=== PATIENT | female | born 1940 | race Caucasian/White ===

== ENCOUNTER → 2017-10-30 11:56 | Outpatient (CLI) | payer MEDICARE, SELFPAY ==
--- NOTE | 2017-10-30 | DI.RAD.S_ITS ---
PROCEDURE: XR KNEE RT 3V INDICATIONS: RIGHT KNEE PAIN TECHNIQUE: 3 views of the knee were acquired. COMPARISON: None. FINDINGS: Bones: No fractures or dislocations. There is a large heterogeneously sclerotic lesion in the central femoral metaphysis measuring 3.1 x 3.1 x 2.3 cm in size. No pathologic fracture. Mild joint space narrowing and marginal spurring over the posterior patella and weightbearing joints. Mild lateral subluxation of the patella. Soft tissues: No joint effusion. No suspicious soft tissue calcifications. IMPRESSION: 1. No joint effusion or acute bony abnormality. 2. 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 3. Large sclerotic lesion in the distal femoral metaphysis, likely enchondroma. Recommend orthopedic consultation. Dictated by: Deniz Garcia M.D. on 10/30/2017 at 13:36 Approved by: Deniz Garcia M.D. on 10/30/2017 at 13:40
--- NOTE | 2017-10-30 | DI.RAD.S_ITS ---
PROCEDURE: XR HAND RT MIN 3V INDICATIONS: RIGHT HAND PAIN TECHNIQUE: 3 views of the hand(s) acquired. COMPARISON: None. FINDINGS: Bones: Generalized osteopenia. No fractures or dislocations. Carpal bones are normally aligned. The severe arthritis with ulnar deviation involves the DIP joints of the index and middle fingers, less severe arthritis is present in the thumb joints, PIP joints of the fourth and fifth fingers and all carpal metacarpal joints. No fractures. No suspicious bone lesions. Soft tissues: No suspicious soft tissue calcifications. 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 on 10/30/2017 at 14:27 Approved by: Deniz Garcia M.D. on 10/30/2017 at 14:29
--- NOTE | 2017-10-30 12:17 | DI.MG.S_ITS ---
Patient Name: TERRA FERNANDEZ date: 1940 Sex: F Attending Physician: Cam Indications: Date: 10/30/2017 12:17 At the request of: PATRICIA SEVILLA Procedure: MM screening mammo BI BILATERAL DIGITAL SCREENING MAMMOGRAM 3D/2D WITH CAD: 10/30/2017 CLINICAL: Routine screening. Family history of breast cancer. Comparison is made to exams dated: 10/28/2016 mammogram, 06/02/2015 mammogram, and 05/29/2014 mammogram - [facility]. The tissue of both breasts is heterogeneously dense. This may lower the sensitivity of mammography. Current study was also evaluated with a Computer Aided Detection (CAD) system. There are benign calcifications bilaterally. There are multiple benign circumscribed masses bilaterally. No significant masses, calcifications, or other findings are seen in either breast. IMPRESSION: BENIGN There is no mammographic evidence of malignancy. A 1 year screening mammogram is recommended. This exam was interpreted at Station ID: [id number]. NOTE: For mammograms, a report in lay terms will be sent to the patient. Approximately 15% of breast malignancies will not be visualized mammographically. In the management of a palpable breast mass, a negative mammogram must not discourage biopsy of a clinically suspicious lesion. Electronically Signed By: Jonh Angulo M.D. ecl/:10/30/2017 19:52:02 letter sent: Normal Exam ACR BI-RADS Category 2: Benign Finding(s) 3342F
== END ==
PROVIDERS: Family Provider Family Medicine; PCP Family Medicine; Visit Provider Family Medicine
DX: Z12.31 Encounter for screening mammogram for malignant neoplasm of breast (principal); Z80.3 Family history of malignant neoplasm of breast; M85.851 Other specified disorders of bone density and structure, right thigh; Z78.0 Asymptomatic menopausal state; M17.11 Unilateral primary osteoarthritis, right knee; M25.861 Other specified joint disorders, right knee; M19.041 Primary osteoarthritis, right hand; M25.561 Pain in right knee; M79.641 Pain in right hand
CPT/HCPCS: 73120; 73130; 73562; 77063; 77067; 77080

== ENCOUNTER → 2018-10-31 14:55 | Outpatient (CLI) | payer MEDICARE, SELFPAY ==
--- NOTE | 2018-10-31 | DI.MG.S_ITS ---
BILATERAL DIGITAL SCREENING MAMMOGRAM 3D/2D WITH CAD: 10/31/2018 CLINICAL: Routine screening. Family history of breast cancer. Comparison is made to exams dated: 10/30/2017 mammogram, 10/28/2016 mammogram, and 06/02/2015 mammogram - [facility]. The tissue of both breasts is heterogeneously dense. This may lower the sensitivity of mammography. Current study was also evaluated with a Computer Aided Detection (CAD) system. There are benign calcifications in both breasts. No significant masses, calcifications, or other findings are seen in either breast. There has been no significant interval change. IMPRESSION: There is no mammographic evidence of malignancy. A 1 year screening mammogram is recommended. This exam was interpreted at Station ID: [id number]. NOTE: For mammograms, a report in lay terms will be sent to the patient. Approximately 15% of breast malignancies will not be visualized mammographically. In the management of a palpable breast mass, a negative mammogram must not discourage biopsy of a clinically suspicious lesion. Electronically Signed By: Zack baez/asia:10/31/2018 16:52:27 letter sent: Normal Exam ACR BI-RADS Category 2: Benign Finding(s) 3342F
== END ==
PROVIDERS: Family Provider Family Medicine; PCP Family Medicine; Visit Provider Family Medicine
DX: Z12.31 Encounter for screening mammogram for malignant neoplasm of breast (principal); Z80.3 Family history of malignant neoplasm of breast
CPT/HCPCS: 77063; 77067

== ENCOUNTER → 2018-12-14 16:00 | Outpatient (CLI) | payer MEDICARE, SELFPAY ==
--- NOTE | 2018-12-14 | DI.ECHO.S_ITS ---
[facility]---------[facility] +---------+ : : [address] [place] : : : : [id number] : : : : Phone: [phone] Echocardiogram Report + + :Name: TERRA CERVANTES Study Date: 12/14/2018 Height: 62 in : :[facility] Exam Location: [facility] Weight: 130 lb : : Gender: Female BSA: 1.6 m2 : :: 1940 Age: 78 yrs BP: 116/65 mmHg: :Reason For Study: MR : : Performed By: Wilfrid Lama : :Referring: PATRICIA SEVILLA : + + Interpretation Summary Normal sinus rhythm. Normal LV size and wall thickness; normal wall motion and LV systolic function. EF is 60-65%. Mild LA enlargement; otherwise normal chamber sizes. Mitral valve leaflets are normal; mild MAC with trace associated MR. Aortic valve leaflets are mildly thickened and calcified; there is mild AI. Compared to prior study 10/28/2016 MR is down from mild-moderate to mild. Procedure: A two-dimensional transthoracic echocardiogram with color flow and Doppler was performed. The study quality was technically adequate. Comparison is made with the echocardiogram of 10/28/16. The patient was in normal sinus rhythm during the exam. Left Ventricle: The left ventricle is normal in size. There is normal left ventricular wall thickness. The ejection fraction is estimated to be 60-65%. There are no focal wall motion abnormalities. Diastolic parameters suggest a relaxation abnormality of the left ventricle, consistent with probable normal filling pressures. Right Ventricle: The right ventricle is normal in size and function. Atria: The left atrium is mildly dilated. Right atrial size is normal. The interatrial septum is intact with no evidence for an atrial septal defect. Mitral Valve: There is mild mitral annular calcification. There is mild mitral regurgitation. Aortic Valve: The aortic valve is trileaflet. The aortic valve is mildly calcified. The aortic valve opens well. There is mild aortic regurgitation. Tricuspid Valve: The tricuspid valve is normal in structure and function. No tricuspid regurgitation. Pulmonary artery pressures cannot be estimated because of the lack of a measurable TR jet velocity. Pulmonic Valve: The pulmonic valve is normal in structure and function. There is trace pulmonic regurgitation. Great Vessels: The aortic root is normal size. The ascending aorta is at the upper limits of normal in size. The pulmonary artery is normal size. The IVC is of normal diameter and collapses greater than 50% with a sniff. This suggests a low right atrial pressure of 3 mm Hg. Pericardium/ Pleura There is no pericardial effusion. There is no pleural effusion. MMode/2D Measurements & Calculations LVIDd: 4.7 cm LVOT diam: 2.0 cm LVIDs: 3.0 cm Ao root diam: 2.7 cm FS: 36.0 % Aortic Jxn: 2.4 cm EPSS: 0.62 cm asc Aorta Diam: 3.5 cm IVSd: 0.92 cm Ao Arch Diam (Prox Trans): 2.7 cm LVPWd: 0.79 cm LV justice. diameter/BSA (cm/m^2): 2.9 LV sys. diameter/BSA (cm/m^2): 1.9 LA dimension: 3.7 cm RA long axis: 4.3 cm LA A2 area: 18.6 cm2 RA area: 12.1 cm2 LA A4 area: 17.9 cm2 RA vol: 28.6 ml LA length (vol): 4.6 cm RA : 18.0 ml/m2 LA vol: 61.3 ml IVC diam: 1.2 cm LA vol index: 38.5 ml/m2 Doppler Measurements & Calculations Ao V2 max: 176.7 cm/sec LVOT Max Brennan: 121.1 cm/sec Ao V2 mean: 120.8 cm/sec LV V1 max P.9 mmHg Ao max P.5 mmHg LV V1 VTI: 24.9 cm Ao mean P.6 mmHg JERRELL(I,D): 2.0 cm2 Ao V2 VTI: 38.4 cm JERRELL(V,D): 2.1 cm2 sev ratio: 0.65 JERRELL indexed to BSA (cm^2/m^2): 1.3 AI P1/2t: 766.2 msec AI dec slope: 149.7 cm/sec2 MV E max brennan: 46.1 cm/sec PA V2 max: 75.7 cm/sec MV A max brennan: 100.7 cm/sec PA V2 mean: 52.0 cm/sec MV E/A: 0.46 PA mean P.2 mmHg Med Peak E' Brennan: 2.4 cm/sec PA pr(Accel): 39.1 mmHg E/E' med: 19.4 PA Accel Time: 0.10 sec Lat Peak E' Brennan: 3.9 cm/sec E/E' lat: 11.8 E/e' average: 15.6 MV dec time: 0.27 sec SV(LVOT): 77.1 ml Electronically signed by: Veronika Jenkins M.D. on Reading Physician:12/15/2018 04:29 AM
== END ==
PROVIDERS: PCP Family Medicine; Visit Provider Family Medicine
DX: I08.0 Rheumatic disorders of both mitral and aortic valves (principal)
CPT/HCPCS: 93306

== ENCOUNTER → 2018-12-24 15:05 | Outpatient (CLI) | payer MEDICARE, SELFPAY ==
--- NOTE | 2018-12-24 | DI.RAD.S_ITS ---
PROCEDURE: XR CHEST 2V INDICATIONS: COUGH TECHNIQUE: 2 views of the chest were acquired. COMPARISON: [facility], , CHEST 2 VIEW, 09/09/2014, 14:28. FINDINGS: Surgical changes and devices: None. Lungs and pleura: Lungs are clear. No pleural effusions or pneumothorax. There is mild prominence of pulmonary vasculature. Mediastinum: There is mild tortuosity of the thoracic aorta, which is unchanged from prior exam. Mediastinal contours are otherwise normal. Heart size is normal. Bones and chest wall: No suspicious bony abnormalities. Soft tissues appear unremarkable. There are mild multilevel degenerative changes of the imaged thoracolumbar spine. IMPRESSION: No acute cardiopulmonary disease. Dictated by: Jonh Angulo M.D. on 12/24/2018 at 20:36 Approved by: Jonh Angulo M.D. on 12/24/2018 at 20:40
== END ==
PROVIDERS: PCP Family Medicine; Visit Provider Family Medicine
DX: R05 Cough (principal)
CPT/HCPCS: 71046

== ENCOUNTER → 2019-11-14 14:52 | Outpatient (CLI) | payer MEDICARE, SELFPAY ==
--- NOTE | 2019-11-14 | DI.MG.S_ITS ---
BILATERAL DIGITAL SCREENING MAMMOGRAM 3D/2D WITH CAD: 11/14/2019 CLINICAL: Routine screening. Family history of breast cancer. Comparison is made to exams dated: 10/31/2018 mammogram, 10/30/2017 mammogram, and 10/28/2016 mammogram - [facility]. The tissue of both breasts is heterogeneously dense. This may lower the sensitivity of mammography. Current study was also evaluated with a Computer Aided Detection (CAD) system. There are benign calcifications in both breasts. No significant masses, calcifications, or other findings are seen in either breast. There has been no significant interval change. IMPRESSION: There is no mammographic evidence of malignancy. A 1 year screening mammogram is recommended. This exam was interpreted at Station ID: [id number]. NOTE: For mammograms, a report in lay terms will be sent to the patient. Approximately 15% of breast malignancies will not be visualized mammographically. In the management of a palpable breast mass, a negative mammogram must not discourage biopsy of a clinically suspicious lesion. Electronically Signed By: Tomer [email or web address]/asia:11/14/2019 17:30:22 letter sent: Normal Exam ACR BI-RADS Category 2: Benign Finding(s) 3342F
== END ==
PROVIDERS: PCP Family Medicine; Referring Provider Family Medicine; Visit Provider Family Medicine
DX: Z12.31 Encounter for screening mammogram for malignant neoplasm of breast (principal); M85.851 Other specified disorders of bone density and structure, right thigh; Z78.0 Asymptomatic menopausal state
CPT/HCPCS: 77063; 77067; 77080

== ENCOUNTER → 2020-12-02 15:17 | Outpatient (CLI) | payer MEDICARE, SELFPAY ==
--- NOTE | 2020-12-02 | DI.MG.S_ITS ---
BILATERAL DIGITAL SCREENING MAMMOGRAM 3D/2D WITH CAD: 12/02/2020 CLINICAL: Routine screening. Family history of breast cancer. Comparison is made to exams dated: 11/14/2019 mammogram, 10/31/2018 mammogram, and 10/30/2017 mammogram - [facility]. The tissue of both breasts is heterogeneously dense. This may lower the sensitivity of mammography. Current study was also evaluated with a Computer Aided Detection (CAD) system. There are benign calcifications in both breasts. No significant masses, calcifications, or other findings are seen in either breast. There has been no significant interval change. IMPRESSION: BENIGN There is no mammographic evidence of malignancy. A 1 year screening mammogram is recommended. This exam was interpreted at Station ID: [id number]. NOTE: For mammograms, a report in lay terms will be sent to the patient. Approximately 15% of breast malignancies will not be visualized mammographically. In the management of a palpable breast mass, a negative mammogram must not discourage biopsy of a clinically suspicious lesion. Electronically Signed By: Ivan hart/asia:12/02/2020 16:05:56 letter sent: Normal Exam ACR BI-RADS Category 2: Benign Finding(s) 3342F
== END ==
PROVIDERS: PCP Family Medicine; Referring Provider Family Medicine; Visit Provider Family Medicine
DX: Z12.31 Encounter for screening mammogram for malignant neoplasm of breast (principal); Z80.3 Family history of malignant neoplasm of breast
CPT/HCPCS: 77063; 77067

== ENCOUNTER → 2021-04-20 13:34 | Outpatient (CLI) | payer MEDICARE, SELFPAY ==
--- NOTE | 2021-04-20 | DI.ECHO.S_ITS ---
[facility]---------+ [facility] +---------+ : : [address] : [address] : : : : [id number] : : : : Phone: [phone]+ Echocardiogram Report + + :Name: TERRA CERVANTES Study Date: 04/20/2021 Height: 63 in : :[facility] ReadingLocation: Weight: 118 lb : : Gender: Female BSA: 1.5 m2 : :: 1940 Age: 80 yrs BP: 152/81 mmHg: :Reason For Study: MITRAL INSUFFICIENCY : :Ordering Physician: DI, : :PATRICIA Performed By: Roseanne Funez : :Referring: PATRICIA SEVILLA : + + Interpretation Summary 1) Normal left ventricular thickness, size, wall motion, and systolic function (EF 60-65%). 2) Normal right ventricular size and function. 3) There is mild to moderate aortic regurgitation. 4) Compared to the Echo done 12/14/2018, no significant change when compared visually. Procedure: A two-dimensional transthoracic echocardiogram with color flow and Doppler was performed. The study quality was technically adequate. Comparison is made with the echocardiogram of 12/14/2018. The patient was in sinus rhythm with heart rates between 58-66 bpm during the exam. Left Ventricle: The left ventricle is normal in size and wall thickness. The ejection fraction is estimated to be 60-65%. Left ventricular systolic function appears normal without focal wall motion abnormalities. Right Ventricle: The right ventricle is normal in size and function. Atria: The left atrium is mildly dilated. Right atrial size is normal. There is no Doppler evidence for an interatrial shunt. Mitral Valve: There is mild mitral annular calcification. The mitral valve leaflets appear mildly thickened, but open well. There is mild mitral regurgitation. Aortic Valve: The aortic valve is trileaflet. The aortic valve is mildly calcified. There is no aortic valve stenosis. There is mild to moderate aortic regurgitation. Tricuspid Valve: The tricuspid valve is normal in structure and function. There is trace tricuspid regurgitation. The right ventricular systolic pressure is estimated to be at least 26 mmHg based on an estimated right atrial pressure of 3 mm Hg. Pulmonic Valve: The pulmonic valve leaflets are thin and pliable; valve motion is normal. There is trace pulmonic regurgitation. Great Vessels: The aortic root is normal size. The ascending aorta is normal in size. The IVC is of normal diameter and collapses greater than 50% with a sniff. This suggests a low right atrial pressure of 3 mm Hg. Pericardium/ Pleura There is no pericardial effusion. There is no pleural effusion. MMode/2D Measurements & Calculations LVIDd: 5.0 cm LVOT diam: 2.0 cm LVIDs: 3.4 cm Ao root diam: 2.9 cm FS: 32.9 % asc Aorta Diam: 3.4 cm IVSd: 0.83 cm Ao Arch Diam (Prox Trans): 2.3 cm LVPWd: 0.96 cm LV justice. diameter/BSA (cm/m^2): 3.2 LV sys. diameter/BSA (cm/m^2): 2.2 LA A2 area: 18.1 cm2 RA long axis: 4.5 cm LA A4 area: 15.7 cm2 RA area: 13.5 cm2 LA length (vol): 4.7 cm RA vol: 34.4 ml LA vol: 51.1 ml RA : 22.3 ml/m2 LA vol index: 33.1 ml/m2 IVC diam: 1.1 cm RVD1 (basal): 3.4 cm RVD2 (mid): 2.8 cm TAPSE: 1.8 cm Doppler Measurements & Calculations Ao V2 max: 138.4 cm/sec LVOT Max Brennan: 122.7 cm/sec Ao V2 mean: 85.6 cm/sec LV V1 max P.0 mmHg Ao max P.7 mmHg LV V1 VTI: 27.1 cm Ao mean P.5 mmHg JERRELL(I,D): 3.7 cm2 Ao V2 VTI: 23.8 cm JERRELL(V,D): 2.9 cm2 sev ratio: 1.1 JERRELL indexed to BSA (cm^2/m^2): 2.4 AI P1/2t: 676.0 msec AI dec slope: 151.4 cm/sec2 MV E max brennan: 57.1 cm/sec TR max brennan: 240.3 cm/sec MV A max brennan: 112.6 cm/sec TR max P.1 mmHg MV E/A: 0.51 PA V2 max: 87.4 cm/sec Med Peak E' Brennan: 3.3 cm/sec PA V2 mean: 60.6 cm/sec E/E' med: 17.3 PA mean P.6 mmHg Lat Peak E' Brennan: 4.9 cm/sec PA pr(Accel): 27.6 mmHg E/E' lat: 11.5 E/e' average: 14.4 MV dec time: 0.36 sec SV(LVOT): 88.1 ml Reading Physician:04:27 PM
== END ==
PROVIDERS: PCP Family Medicine; Referring Provider Family Medicine; Visit Provider Family Medicine
DX: I08.0 Rheumatic disorders of both mitral and aortic valves (principal)
CPT/HCPCS: 93306

== ENCOUNTER → 2021-11-29 18:46 | Outpatient (ROUT) | payer MEDICARE, SELFPAY ==
[2021-11-29 19:33] LABS: COVID19 -Nasal RAPID Negative (Negative)
== END ==
PROVIDERS: PCP Family Medicine; Visit Provider Family Medicine
DX: Z20.822 Contact with and (suspected) exposure to COVID-19 (principal); R05.1 Acute cough
CPT/HCPCS: 87635

== ENCOUNTER → 2021-12-23 15:06 | Outpatient (CLI) | payer MEDICARE, SELFPAY ==
--- NOTE | 2021-12-23 15:08 | DI.MG.S_ITS ---
BILATERAL DIGITAL SCREENING MAMMOGRAM 3D/2D WITH CAD: 12/23/2021 CLINICAL: Routine screening. Family history of breast cancer. Comparison is made to exams dated: 12/02/2020 mammogram, 11/14/2019 mammogram, 10/31/2018 mammogram, 10/30/2017 mammogram, and 10/28/2016 mammogram - [facility]. Both breasts are heterogeneously dense, which may obscure small masses (category c / 51-75% glandular tissue). Current study was also evaluated with a Computer Aided Detection (CAD) system. No significant masses, calcifications, or other findings are seen in either breast. There has been no significant interval change. IMPRESSION: NEGATIVE There is no mammographic evidence of malignancy. A 1 year screening mammogram is recommended. Based on the Tyrer Cuzick model (a risk assessment model) the patient's lifetime risk is 3.3% and her 10 year risk is 0.0%. According to the ACR, ACS, and NCCN guidelines, an annual breast MRI exam along with mammogram is recommended if the patient's lifetime risk is 20% or greater. This exam was interpreted at Station ID: [id number]. NOTE: For mammograms, a report in lay terms will be sent to the patient. Approximately 15% of breast malignancies will not be visualized mammographically. In the management of a palpable breast mass, a negative mammogram must not discourage biopsy of a clinically suspicious lesion. Electronically Signed By: Oziel charles/asia:12/23/2021 17:20:42 letter sent: Normal Exam ACR BI-RADS Category 1: Negative 3341F
== END ==
PROVIDERS: PCP Family Medicine; Referring Provider Family Medicine; Visit Provider Family Medicine
DX: Z12.31 Encounter for screening mammogram for malignant neoplasm of breast (principal); M81.0 Age-related osteoporosis without current pathological fracture; Z80.3 Family history of malignant neoplasm of breast; M85.89 Other specified disorders of bone density and structure, multiple sites
CPT/HCPCS: 77063; 77067; 77080

== ENCOUNTER 2022-06-12 11:40 | Emergency (ER) | payer MEDICARE, SELFPAY ==
[2022-06-12] VITALS (14 sets, daily range): BP systolic 168–228; BP diastolic 80–102; PULSE 68–88; RESP 14–25; TEMP 36.7; O2SAT 80–100; BMI 19.3
--- NOTE | 2022-06-12 11:59 | ED_ITS ---
HPI - General Adult General Chief complaint: Hypertension Stated complaint: high blood pressure Time Seen by Provider: 06/12/22 11:59 Source: patient Mode of arrival: Ambulatory Limitations: no limitations History of Present Illness HPI narrative: This is an 82-year-old female with history of hypertension, dyslipidemia, GERD arrives with complaint of elevated blood pressure. Patient states her primary care Dr. Levy has been asking her to monitor her blood pressures as she was elevated at her last visit on March 23. She has been ranging from 140s to 180s on her daily checks but was 200 systolic today. She notes she developed a headache after arrival. She denies vision changes. She occasionally has chest pain or shortness of breath on a daily basis she states it is usually early afternoon seems to be very cyclic. She states it is not worse with exertion it does not get any better with other changes. She had some nausea and did dry heave today. She attributes her symptoms today to having several alcoholic drinks last night. Patient states she only has 1 or 2 drinks on Wednesdays and . Last night she had about 3 or 4 of alcoholic drinks. She states she is had some persistent chronic diarrhea for at least a month or longer from when she traveled to [place]. It has been improving and has almost resolved with Imodium and Pepcid. She denies any urinary symptoms. She denies any new swelling in her extremities. Patient states she has not had any medication changes. Patient states she is had prior bowel resection with ostomy which was then reanastomosed around 2010 for perforated diverticulitis. She is allergic to sulfa. No tobacco, no illicit. Dr. Levy is her primary care physician. Related Data Home Medications Medication Instructions Recorded Confirmed atenolol 25 mg tablet 25 mg PO BID ##0 01/10/11 simvastatin 20 mg tablet (Zocor) 20 mg PO HS ##0 01/10/11 alendronate 70 mg tablet (Fosamax) 70 mg PO Q7D@0730 ##0 12/07/11 aspirin 325 mg tablet 650 mg PO QDAY ##0 04/06/12 Previous Rx's Medication Instructions Recorded felodipine 5 mg tablet,extended 5 mg PO DAILY #30 tabs 06/12/22 release 24 hr Allergies Allergy/AdvReac Type Severity Reaction Status Date / Time sulfamethoxazole Allergy Unknown Unverified 07/26/17 11:50 [From Bactrim] trimethoprim [From Bactrim] Allergy Unknown Unverified 07/26/17 11:50 Review of Systems Review of Systems ROS Unobtainable: All systems reviewed & are unremarkable except as noted in HPI and below Exam Narrative Exam Narrative: GEN: Thin, well appearing elderly female, alert and oriented x 3, patient appears to be in mild distress. HEENT: Atraumatic, pupils are equal round reactive to light, extraocular movements are intact, nares are clear. No facial droop, normal speech. HEART: Regular rate and rhythm without murmur, clicks, rubs. Pulses are equal in upper and lower extremities LUNGS:Lungs clear to auscultation, no wheezes, rales, crackles, chest moves symmetrically, no tachypnea accessory muscle use ABD:bowel sounds normal, soft, non-tender, no guarding, rebound, rigidity, no masses noted, no hepatosplenomegaly, no bruit or pulsatile mass :No CVA tenderness MSCL: Non-tender, no muscle atrophy, muscles strength 5/5 upper and lower extremities, full range of motion NEURO:CN 2-12 intact, sensation normal Initial Vital Signs Initial Vital Signs: Vital Signs Temperature 98.1 F 06/12/22 11:42 Pulse Rate 80 06/12/22 11:42 Respiratory Rate 16 06/12/22 11:42 Blood Pressure 191/88 H 06/12/22 11:42 Pulse Oximetry 97 06/12/22 11:42 Oxygen Delivery Method 06/12/22 11:42 Course Orders Ordered: ED Orders 06/12/22 12:09 XR chest 1V Stat EKG-12 Lead Stat 06/12/22 12:21 Complete Blood Count AUTO DIFF Stat Comprehensive Metabolic Panel Stat Lipase Stat Magnesium Stat Partial Thromboplastin Time Stat Prothrombin Time INR Stat Troponin & CK Cardiac Panel Stat 06/12/22 13:17 COVID19 -Nasal RAPID/Pre-Proc Stat 06/12/22 14:23 Trop I [Troponin I] Stat Discontinued Medications Acetaminophen (Acetaminophen 325 Mg Tablet) 650 mg PO NOW ONE Stop: 06/12/22 14:03 Last Admin: 06/12/22 14:13 Dose: 650 mg Documented By: NR Vital Signs Vital signs: Vital Signs - 8 hr 06/12/22 12:08 06/12/22 12:27 06/12/22 12:27 Pulse Rate 87 72 Respiratory Rate 23 Blood Pressure 177/83 H Pulse Oximetry 94 100 06/12/22 12:29 06/12/22 12:30 06/12/22 12:30 Pulse Rate 72 73 Respiratory Rate 17 22 Blood Pressure 168/80 H Pulse Oximetry 100 100 06/12/22 13:00 06/12/22 13:00 06/12/22 13:30 Pulse Rate 74 Respiratory Rate 22 Blood Pressure 194/86 H 179/84 H Pulse Oximetry 100 06/12/22 13:30 06/12/22 14:04 06/12/22 14:06 Pulse Rate 73 88 71 Respiratory Rate 17 23 Blood Pressure Pulse Oximetry 100 80 L 86 L 06/12/22 14:06 06/12/22 14:21 06/12/22 14:21 Pulse Rate 70 Respiratory Rate 25 H Blood Pressure 228/102 H 202/84 H Pulse Oximetry 99 06/12/22 14:30 06/12/22 14:30 06/12/22 15:00 Pulse Rate 68 75 Respiratory Rate 19 17 Blood Pressure 191/96 H Pulse Oximetry 100 99 06/12/22 15:01 06/12/22 15:01 06/12/22 15:30 Pulse Rate 74 Respiratory Rate 17 Blood Pressure 195/89 H 175/81 H Pulse Oximetry 100 06/12/22 15:30 Pulse Rate 72 Respiratory Rate 14 Blood Pressure Pulse Oximetry 100 Medical Decision Making Lab Data 06/12/22 12:21 06/12/22 12:21 Labs: Lab Results 06/12/22 06/12/22 06/12/22 Range/Units 12:21 12:21 12:21 WBC 9.4 (4.5-11.0) X10^3/uL RBC 4.52 (4.0-5.2) X10^6/uL Hgb 14.3 (12.0-16.0) g/dL Hct 42.7 (36-46) % MCV 94.4 (80-100) fL MCH 31.6 (26-34) PG MCHC 33.5 (30-36) % RDW 14.4 (11.6-14.8) % Plt Count 292 (150-400) X10^3/uL Neut % (Auto) 82.0 H (50-75) % Lymph % (Auto) 12.4 L (25-40) % [place] % (Auto) 4.4 (3-14) % Eos % (Auto) 0.5 L (2-4) % Baso % (Auto) 0.7 (0-2) % Neut # (Auto) 7700 H (9557-1763) /uL Lymph # (Auto) 1200 (5407-6537) /uL [place] # (Auto) 400 (0-900) /uL Eos # (Auto) 0 (0-450) /uL Baso # (Auto) 100 (0-100) /uL PT 10.6 (10.1-12.7) SECONDS INR 0.9 (0.9-1.3) APTT 28 (26-36) SECONDS Sodium 142 (137-145) mmol/L Potassium 3.9 (3.4-5.1) mmol/L Chloride 103 (98-107) mmol/L Carbon Dioxide 27 (22-32) mmol/L BUN 21 H (7-17) mg/dL Creatinine 0.65 (0.52-1.04) mg/dL Estimated GFR > 60 (>60) mL/min BUN/Creatinine Ratio 32.3 H (6-22) Glucose 85 (80-110) mg/dL Calcium 9.4 (8.4-10.2) mg/dL Magnesium 2.0 (1.6-2.3) mg/dL Total Bilirubin 0.4 (0.2-1.3) mg/dL AST 26 (14-36) IU/L ALT 18 (<35) IU/L Alkaline Phosphatase 57 (38-126) U/L Total Creatine Kinase 85 (30-135) U/L CK-MB (CK-2) TNP CK-MB (CK-2) Rel Index TNP Troponin I < 0.012 (0.01-0.034) ng/mL Total Protein 8.3 H (6.3-8.2) g/dL Albumin 5.1 H (3.5-5.0) g/dL Globulin 3.2 (1.7-4.1) g/dL Albumin/Globulin Ratio 1.6 (1.0-2.8) Lipase 108 (23-300) U/L SARS-CoV-2 (PCR) (Negative) 06/12/22 06/12/22 Range/Units 13:17 14:23 WBC (4.5-11.0) X10^3/uL RBC (4.0-5.2) X10^6/uL Hgb (12.0-16.0) g/dL Hct (36-46) % MCV (80-100) fL MCH (26-34) PG MCHC (30-36) % RDW (11.6-14.8) % Plt Count (150-400) X10^3/uL Neut % (Auto) (50-75) % Lymph % (Auto) (25-40) % [place] % (Auto) (3-14) % Eos % (Auto) (2-4) % Baso % (Auto) (0-2) % Neut # (Auto) (9716-6294) /uL Lymph # (Auto) (5855-2603) /uL [place] # (Auto) (0-900) /uL Eos # (Auto) (0-450) /uL Baso # (Auto) (0-100) /uL PT (10.1-12.7) SECONDS INR (0.9-1.3) APTT (26-36) SECONDS Sodium (137-145) mmol/L Potassium (3.4-5.1) mmol/L Chloride (98-107) mmol/L Carbon Dioxide (22-32) mmol/L BUN (7-17) mg/dL Creatinine (0.52-1.04) mg/dL Estimated GFR (>60) mL/min BUN/Creatinine Ratio (6-22) Glucose (80-110) mg/dL Calcium (8.4-10.2) mg/dL Magnesium (1.6-2.3) mg/dL Total Bilirubin (0.2-1.3) mg/dL AST (14-36) IU/L ALT (<35) IU/L Alkaline Phosphatase (38-126) U/L Total Creatine Kinase (30-135) U/L CK-MB (CK-2) CK-MB (CK-2) Rel Index Troponin I < 0.012 (0.01-0.034) ng/mL Total Protein (6.3-8.2) g/dL Albumin (3.5-5.0) g/dL Globulin (1.7-4.1) g/dL Albumin/Globulin Ratio (1.0-2.8) Lipase (23-300) U/L SARS-CoV-2 (PCR) Negative (Negative) Imaging Data Chest x-ray: Radiologist's Impression: [address] [address] XRay Report Signed Patient: Denisse Hopkins MR#: [id number] : 1940 Acct:[id number] Age/Sex: 82 / F Date of Service: 06/12/22 Loc: ED Accession Number: [id number] ?? Procedure: XR chest 1V Ordering Provider: Radha Davis D.O. PROCEDURE:? XR CHEST 1V ? INDICATIONS:? chest pain ? TECHNIQUE:? One view of the chest was acquired.? ? COMPARISON:? [facility], CR, XR CHEST 2V, 12/24/2018, 15:18. ? FINDINGS:? ? Surgical changes and devices:? None.? ? Lungs and pleura:? Lungs are clear.? No pleural effusions or pneumothorax.? ? Mediastinum:? Mediastinal contours appear normal.? Heart size is normal.? ? Bones and chest wall:? No suspicious bony lesions.? Overlying soft tissues appear unremarkable.? ? IMPRESSION:? No acute cardiopulmonary findings ? ? ? Approved by: Anthony Quintero M.D. on 06/12/2022 at 11:56? ECG Data Attestation: I personally reviewed and interpreted this ECG as follows: Prior ECG tracings: available for review Interpretation: Sinus rhythm rate of 70 HI 174 QRS 86 QTC 466. Nonspecific change. Patient has prior from 12/23/2008 with no acute or dynamic changes. MDM Narrative Medical decision making narrative: This is an 82-year-old female who presents with complaint of hypertension, patient has longstanding hypertension she is been on felodipine for quite some time at follow-up visit on May 24 she was noted to be higher than expected. They asked her to keep a running tab and she presents notes ranging from [id number]. Her highest pressures here have been in the 200-190 range. She is been as low as 160 but more consistently in the 180-200 range. Diastolic has been averaging 80s with a high of 102. Patient states she did have some nausea and vomiting this morning which she attributed to alcohol last night. She is had a mild headache that arrived after arrival. She is no acute neurologic changes. She does not have any active nausea vomiting anymore she states she took her home medications after this was able to keep them down. She notes occasional chest pain and shortness of breath on a daily base about the same time every day on a cyclic type pattern. Her workup including CBC, coags CMP, troponin x2 and COVID are negative. Chest x-ray is negative. Discussed with patient she does need some adjustment of her medication, we do not have felodipine available here but I would give her an additional dose in the department. I would have her increased her dose to 5 mg daily and check her blood pressures over the next several days and talk to Dr. Levy about adjustment. Patient's and her friend at bedside asked about referral to Card iology. Discussed with patient was going to give her dose of amlodipine 2.5 mg in addition her normal 2.5 mg felodipine she took this morning. I discussed with pharmacy that is a one-to-one conversion so she could take additional dose for a total 5 mg today. Patient prefers to take her home dose when she returns home this afternoon. We will refill her with a prescription for additional. Discu ssed return precautions people she was able to and answer all questions no other concerns. Discharge Plan Departure Patient Disposition: Home Clinical Impression: Hypertension Activity Restrictions/Additional Instructions: Please follow-up with Dr. Levy. Continue to monitor your blood pressures and discuss with them if her medications need additional adjustment. Call tomorrow morning to set up recheck. Also included is referral to cardiology Take an extra dose of your felodipine when you return home. Then please start 5 mg once daily at your usual time in the morning tomorrow I would recommend increasing your felodipine to 5 mg daily, based on your blood pressure log. Prescription sent to [facility] in [place]. Please return for new or worsening symptoms, persistent vomiting, increasing headaches, new or worsening chest pain or shortness of breath, new swelling in your extremities, black or bloody stools or other new or concerning changes Prescriptions: New felodipine 5 mg tablet extended release 24 hr 5 mg PO DAILY Qty: 30 0RF No Action atenolol 25 MG tablet 25 mg PO BID Qty: 0 simvastatin [Zocor] 20 MG tablet 20 mg PO HS Qty: 0 alendronate [Fosamax] 70 MG tablet 70 mg PO Q7D@0730 Qty: 0 aspirin 325 MG tablet 650 mg PO QDAY Qty: 0 Referrals: Yue Apple DO [Physician] - Alexx Levy MD [Primary Care Provider] - Stand Alone Forms: Patient Portal/API
--- NOTE | 2022-06-12 12:09 | DI.RAD.S_ITS ---
PROCEDURE: XR CHEST 1V INDICATIONS: chest pain TECHNIQUE: One view of the chest was acquired. COMPARISON: [facility], CR, XR CHEST 2V, 12/24/2018, 15:18. FINDINGS: Surgical changes and devices: None. Lungs and pleura: Lungs are clear. No pleural effusions or pneumothorax. Mediastinum: Mediastinal contours appear normal. Heart size is normal. Bones and chest wall: No suspicious bony lesions. Overlying soft tissues appear unremarkable. IMPRESSION: No acute cardiopulmonary findings Approved by: Anthony Quintero M.D. on 06/12/2022 at 11:56
[2022-06-12 12:38] LABS: Add Manual Diff / Slide Review NO; Basophils Absolute Auto 100 /uL (0-100); Basophils Percent Auto 0.7 % (0-2); Eosinophils Absolute Auto 0 /uL (0-450); Eosinophils Percent Auto 0.5 % (2-4); Hematocrit 42.7 % (36-46); Hemoglobin 14.3 g/dL (12.0-16.0); Lymphocytes Absolute Auto 1200 /uL (1100-4500); Lymphocytes Percent Auto 12.4 % (25-40); Mean Corpuscular HGB Conc 33.5 % (30-36); Mean Corpuscular Hemoglobin 31.6 PG (26-34); Mean Corpuscular Volume 94.4 fL (80-100); Monocytes Absolute Auto 400 /uL (0-900); Monocytes Percent Auto 4.4 % (3-14); Neutrophils Absolute Auto 7700 /uL (1500-7000); Platelet Count 292 X10^3/uL (150-400); Red Blood Cell Count 4.52 X10^6/uL (4.0-5.2); Red Cell Distribution Width 14.4 % (11.6-14.8); White Blood Cell Count 9.4 X10^3/uL (4.5-11.0)
[2022-06-12 12:44] LABS: INR 0.9 (0.9-1.3); Prothrombin Time 10.6 SECONDS (10.1-12.7)
[2022-06-12 12:46] LABS: PTT Partial Thromboplastin Tim 28 SECONDS (26-36)
[2022-06-12 12:52] LABS: Alanine Aminotransferase 18 IU/L (<35); Albumin 5.1 g/dL (3.5-5.0); Albumin Globulin Ratio 1.6 (1.0-2.8); Alkaline Phosphatase 57 U/L (38-126); Aspartate Aminotransferase 26 IU/L (14-36); BUN Creatinine Ratio 32.3 (6-22); Bilirubin Total 0.4 mg/dL (0.2-1.3); Blood Urea Nitrogen 21 mg/dL (7-17); Calcium 9.4 mg/dL (8.4-10.2); Carbon Dioxide 27 mmol/L (22-32); Chloride 103 mmol/L (98-107); Creatine Kinase 85 U/L (30-135); Estimated Glomerular Filt Rate > 60 mL/min (>60); Globulin 3.2 g/dL (1.7-4.1); Glucose 85 mg/dL (80-110); HEMOLYSIS < 15 (0-50); Lipase 108 U/L (23-300); Potassium 3.9 mmol/L (3.4-5.1); Sodium 142 mmol/L (137-145); Total Protein 8.3 g/dL (6.3-8.2)
[2022-06-12 13:02] LABS: Troponin I < 0.012 ng/mL (0.01-0.034)
[2022-06-12] MEDS: ACETAMINOPHEN 325 MG TABLET 650 MG PO (14:13)
[2022-06-12 14:21] LABS: COVID19 -Nasal RAPID Negative (Negative)
[2022-06-12 15:00] LABS: Troponin I < 0.012 ng/mL (0.01-0.034)
== END 2022-06-12 15:54 | disposition home or self-care (01) ==
PROVIDERS: Emergency Provider Emergency Medicine; PCP Family Medicine
DX: I10 Essential (primary) hypertension (principal); R07.9 Chest pain, unspecified; Z79.899 Other long term (current) drug therapy; Z20.822 Contact with and (suspected) exposure to COVID-19
CPT/HCPCS: 36415; 71045; 80053; 82550; 83690; 83735; 84484; 85025; 85610; 85730; 87635; 93005; 99284; C9803

== ENCOUNTER → 2022-12-07 16:49 | Outpatient (CLI) | payer MEDICARE, SELFPAY ==
[2022-12-07 17:23] LABS: Add Manual Diff / Slide Review NO; Basophils Absolute Auto 100 /uL (0-100); Basophils Percent Auto 0.6 % (0-2); Eosinophils Absolute Auto 0 /uL (0-450); Eosinophils Percent Auto 0.5 % (2-4); Hematocrit 38.5 % (36-46); Hemoglobin 13.1 g/dL (12.0-16.0); Lymphocytes Absolute Auto 1400 /uL (1100-4500); Lymphocytes Percent Auto 16.5 % (25-40); Mean Corpuscular Volume 94.1 fL (80-100); Monocytes Absolute Auto 500 /uL (0-900); Monocytes Percent Auto 6.3 % (3-14); Neutrophils Absolute Auto 6300 /uL (1500-7000); Neutrophils Percent Auto 76.1 % (50-75); Platelet Count 317 X10^3/uL (150-400); Red Blood Cell Count 4.09 X10^6/uL (4.0-5.2); Red Cell Distribution Width 12.7 % (11.6-14.8); White Blood Cell Count 8.3 X10^3/uL (4.5-11.0)
[2022-12-07 17:32] LABS: Alanine Aminotransferase 19 IU/L (<35); Albumin 4.6 g/dL (3.5-5.0); Albumin Globulin Ratio 1.6 (1.0-2.8); Alkaline Phosphatase 56 U/L (38-126); Aspartate Aminotransferase 27 IU/L (14-36); BUN Creatinine Ratio 27.8 (6-22); Bilirubin Total 0.3 mg/dL (0.2-1.3); Blood Urea Nitrogen 20 mg/dL (7-17); Carbon Dioxide 26 mmol/L (22-32); Chloride 107 mmol/L (98-107); Estimated Glomerular Filt Rate > 60 mL/min (>60); Globulin 2.8 g/dL (1.7-4.1); Glucose 96 mg/dL (80-110); HEMOLYSIS < 15 (0-50); Lipase 108 U/L (23-300); Potassium 3.9 mmol/L (3.4-5.1); Sodium 140 mmol/L (137-145); Total Protein 7.4 g/dL (6.3-8.2)
== END ==
PROVIDERS: PCP Family Medicine; Referring Provider Family Medicine; Visit Provider Family Medicine
DX: R10.84 Generalized abdominal pain (principal)
CPT/HCPCS: 36415; 80053; 83690; 85025

== ENCOUNTER → 2022-12-08 12:12 | Outpatient (CLI) | payer MEDICARE, SELFPAY ==
--- NOTE | 2022-12-08 | DI.US.S_ITS ---
PROCEDURE: US ABDOMEN COMPLETE INDICATIONS: RIGHT UPPER QUADRANT/RIGHT RIB PAIN. NAUSEA/DIARRHEA. TECHNIQUE: Real-time scanning was performed of the abdominal and retroperitoneal organs, with image documentation. COMPARISON: [facility], CT, ABDOMEN/PELVIS WITH CONTRAST, 02/23/2015, 12:12. [facility], CT, ABDOMEN/PELVIS WITH CONTRAST, 07/15/2014, 10:17. FINDINGS: Liver: Liver is normal in size and homogeneous in echotexture. Gallbladder: No findings of gallstones or sludge are seen. The gallbladder wall is not thickened, measuring 3 mm or less. There is a likely pharyngeal cap noted. No specific pericholecystic fluid is seen. The sonographic Santana sign is negative. Biliary ducts: Intrahepatic bile ducts are non-dilated. Extrahepatic bile duct caliber measures 5.6 mm. Normal is 6-7 mm or less in diameter, or 10 mm or less post-cholecystectomy. Pancreas: Visualized portions of the pancreas are sonographically normal. Spleen: Spleen is normal in size and homogeneous in echotexture. Kidneys: The left kidney appears lobular and atrophic. Right kidney measures 10.5 cm long; left kidney measures 8.8 cm long. No hydronephrosis or nephrolithiasis. No solid masses. Aorta: Visualized aorta is normal in caliber at less than 3 cm. Iliacs: Not well seen. IVC: Intrahepatic inferior vena cava is patent. Miscellaneous: No free abdominal fluid. IMPRESSION: No imaging explanation is found for this patient's presenting symptoms. The gallbladder demonstrates a normal sonographic appearance. No biliary dilatation is seen. Additional findings: Left Kidney with and atrophic/lobular appearance. Dictated by: Shaheed Pool M.D. on 12/08/2022 at 17:12 Approved by: Shaheed Pool M.D. on 12/08/2022 at 17:13
== END ==
PROVIDERS: PCP Family Medicine; Referring Provider Family Medicine; Visit Provider Family Medicine
DX: R10.84 Generalized abdominal pain (principal)
CPT/HCPCS: 76700

== ENCOUNTER → 2022-12-27 12:43 | Outpatient (CLI) | payer MEDICARE, SELFPAY ==
--- NOTE | 2022-12-27 12:44 | DI.MG.S_ITS ---
BILATERAL DIGITAL SCREENING MAMMOGRAM 3D/2D WITH CAD: 12/27/2022 CLINICAL: Routine screening. Family history of breast cancer. Comparison is made to exams dated: 12/23/2021 mammogram, 12/02/2020 mammogram, and 11/14/2019 mammogram - [facility]. Both breasts are heterogeneously dense, which may obscure small masses (category c / 51-75% glandular tissue). Current study was also evaluated with a Computer Aided Detection (CAD) system. There are benign calcifications in the left breast. No significant masses, calcifications, or other findings are seen in either breast. There has been no significant interval change. IMPRESSION: BENIGN There is no mammographic evidence of malignancy. A 1 year screening mammogram is recommended. Based on the Tyrer Cuzick model (a risk assessment model) the patient's lifetime risk is 2.8% and her 10 year risk is 0.0%. According to the ACR, ACS, and NCCN guidelines, an annual breast MRI exam along with mammogram is recommended if the patient's lifetime risk is 20% or greater. This exam was interpreted at Station ID: [id number]. NOTE: For mammograms, a report in lay terms will be sent to the patient. Approximately 15% of breast malignancies will not be visualized mammographically. In the management of a palpable breast mass, a negative mammogram must not discourage biopsy of a clinically suspicious lesion. Electronically Signed By: Bianka thomas/asia:12/27/2022 17:30:03 letter sent: Normal Exam ACR BI-RADS Category 2: Benign Finding(s) 3342F
== END ==
PROVIDERS: PCP Family Medicine; Referring Provider Family Medicine; Visit Provider Family Medicine
DX: Z12.31 Encounter for screening mammogram for malignant neoplasm of breast (principal); Z80.3 Family history of malignant neoplasm of breast
CPT/HCPCS: 77063; 77067

== ENCOUNTER → 2023-01-20 18:11 | Outpatient (ROUT) | payer MEDICARE, SELFPAY ==
[2023-01-20 19:04] LABS: Influenza A - CEPHEID Flu A NEGATIVE (NEGATIVE); Influenza B - CEPHEID Flu B NEGATIVE (NEGATIVE); Respiratory Syncytial Virus Negative (Negative)
[2023-01-20 19:08] LABS: COVID-19 CEPHEID 4-PLEX PCR Negative (Negative)
== END ==
PROVIDERS: PCP Family Medicine; Visit Provider Registered Nurse
DX: R05.9 Cough, unspecified (principal); R05.1 Acute cough
CPT/HCPCS: 0241U

== ENCOUNTER → 2023-04-20 14:21 | Outpatient (ROUT) | payer MEDICARE, SELFPAY ==
[2023-04-20 15:09] LABS: Influenza A - CEPHEID Flu A NEGATIVE (NEGATIVE); Influenza B - CEPHEID Flu B NEGATIVE (NEGATIVE); Respiratory Syncytial Virus POSITIVE (Negative)
[2023-04-20 15:10] LABS: COVID-19 CEPHEID 4-PLEX PCR Negative (Negative)
== END ==
PROVIDERS: PCP Family Medicine; Visit Provider Registered Nurse
DX: R05.1 Acute cough (principal)
CPT/HCPCS: 0241U

== ENCOUNTER → 2023-07-17 15:42 | Outpatient (ROUT) | payer MEDICARE, SELFPAY ==
[2023-07-17 16:51] LABS: Adenovirus Not Detected (Not Detect); B. parapertussis Not Detected (Not Detecte); Bordetella pertussis Not Detected (Not Detect); Chlamydophila pneumoniae Not Detected (Not Detect); Coronavirus 229E Not Detected (Not Detect); Coronavirus HKU1 Not Detected (Not Detect); Coronavirus NL 63 Not Detected (Not Detect); Coronavirus OC43 Not Detected (Not Detect); Human Metapneumovirus Not Detected (Not Detect); Human Rhinovirus/Enterovirus Not Detected (Not Detect); Influenza A H1-2009 Detected (Not Detect); Influenza B Not Detected (Not Detect); Mycoplasma pneumoniae Not Detected (Not Detect); Parainfluenza Virus 1 Not Detected (Not Detect); Parainfluenza Virus 2 Not Detected (Not Detect); Parainfluenza Virus 3 Not Detected (Not Detect); Parainfluenza Virus 4 Not Detected (Not Detect); Respiratory Syncytial Virus Not Detected (Not Detect); SARS- CoV-2 Not Detected (Not Detecte)
== END ==
PROVIDERS: PCP Family Medicine; Visit Provider Family Medicine
DX: R05.1 Acute cough (principal)
CPT/HCPCS: 87633

== ENCOUNTER → 2023-10-12 14:17 | Outpatient (CLI) | payer MEDICARE, SELFPAY ==
--- NOTE | 2023-10-12 14:21 | DI.RAD.S_ITS ---
PROCEDURE: XR KNEE RT 3V INDICATIONS: KNEE PAIN TECHNIQUE: 3 views of the knee were acquired. COMPARISON: [facility], CR, XR KNEE RT 3V, 10/30/2017, 12:12. FINDINGS: Bones: No acute fractures or dislocations. No suspicious bony lesions. 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 Severe joint space narrowing is seen at the patellofemoral compartment with subchondral sclerosis and marginal osteophytes. Mild joint space narrowing at the medial and lateral femorotibial compartments. Soft tissues: No joint effusion. Chondrocalcinosis. 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 Approved by: Tomer Bauer M.D. on 10/12/2023 at 21:58
--- NOTE | 2023-10-12 14:21 | DI.RAD.S_ITS ---
PROCEDURE: XR FOOT RT MIN 3V INDICATIONS: HEEL PAIN TECHNIQUE: 3 views of the foot were acquired. COMPARISON: None. FINDINGS: Bones: No acute fractures or dislocations. No suspicious bony lesions. Severe 1st metatarsophalangeal osteoarthrosis with remodeling of the articular surfaces and mild lateral subluxation of the 1st proximal phalanx. Generalized osteopenia. Scattered degenerative changes in the interphalangeal joints of the toes. Small plantar calcaneal enthesophyte. Soft tissues: No suspicious soft tissue calcification. IMPRESSION: 1. Severe 1st metatarsophalangeal osteoarthrosis with mild lateral subluxation. 2. Small plantar calcaneal enthesophyte. Approved by: Tomer Bauer M.D. on 10/12/2023 at 21:56
== END ==
PROVIDERS: PCP Family Medicine; Referring Provider Family Medicine; Visit Provider Family Medicine
DX: S93.141A Subluxation of metatarsophalangeal joint of right great toe, initial encounter (principal); M19.071 Primary osteoarthritis, right ankle and foot; M17.11 Unilateral primary osteoarthritis, right knee; M77.31 Calcaneal spur, right foot; M79.671 Pain in right foot; M25.561 Pain in right knee
CPT/HCPCS: 73562; 73630

== ENCOUNTER → 2024-01-05 13:07 | Outpatient (CLI) | payer MEDICARE, SELFPAY ==
--- NOTE | 2024-01-05 13:09 | DI.MG.S_ITS ---
BILATERAL DIGITAL SCREENING MAMMOGRAM 3D/2D WITH CAD: 01/05/2024 CLINICAL: Routine screening. Family history of breast cancer. Comparison is made to exams dated: 12/27/2022 mammogram, 12/23/2021 mammogram, and 12/02/2020 mammogram - [facility]. The breasts are heterogeneously dense, which may obscure small masses (category c / 51-75% glandular tissue). Current study was also evaluated with a Computer Aided Detection (CAD) system. No significant masses, calcifications, or other findings are seen in either breast. There has been no significant interval change. IMPRESSION: NEGATIVE There is no mammographic evidence of malignancy. A 1 year screening mammogram is recommended. Based on the Tyrer Cuzick model (a risk assessment model) the patient's lifetime risk is 1.3% and her 10 year risk is 0.0%. According to the ACR, ACS, and NCCN guidelines, an annual breast MRI exam along with mammogram is recommended if the patient's lifetime risk is 20% or greater. This exam was interpreted at Station ID: [id number]. NOTE: For mammograms, a report in lay terms will be sent to the patient. Approximately 15% of breast malignancies will not be visualized mammographically. In the management of a palpable breast mass, a negative mammogram must not discourage biopsy of a clinically suspicious lesion. Electronically Signed By: Oziel charles/asia:01/05/2024 15:21:14 letter sent: Normal Exam ACR BI-RADS Category 1: Negative
== END ==
PROVIDERS: PCP Family Medicine; Referring Provider Family Medicine; Visit Provider Family Medicine
DX: Z12.31 Encounter for screening mammogram for malignant neoplasm of breast (principal); Z80.3 Family history of malignant neoplasm of breast; R92.333 Mammographic heterogeneous density, bilateral breasts
CPT/HCPCS: 77063; 77067

== ENCOUNTER → 2024-04-23 15:14 | Outpatient (CLI) | payer MEDICARE, SELFPAY ==
--- NOTE | 2024-04-23 | DI.RAD.S_ITS ---
PROCEDURE: XR SHOULDER RT MIN 2V INDICATIONS: RIGHT SHOULDER PAIN TECHNIQUE: Three views of the shoulder were acquired. COMPARISON: None. FINDINGS: Bones: No fractures or dislocations. Moderate glenohumeral joint space loss and subcortical cystic changes. Moderate AC joint space loss. Hooking of the undersurface of the acromion. No suspicious bony lesions. Visualized ribs appear intact. Soft tissues: No suspicious soft tissue calcifications. IMPRESSION: Degenerative changes and undersurface acromial hooking. This may predispose to rotator cuff impingement. Dictated by: Bianka Guerra M.D. on 04/24/2024 at 21:18 Approved by: Bianka Guerra M.D. on 04/24/2024 at 21:19
--- NOTE | 2024-04-23 | DI.RAD.S_ITS ---
PROCEDURE: XR CHEST 2V INDICATIONS: PRECORDIAL PAIN TECHNIQUE: 2 views of the chest were acquired. COMPARISON: [facility], CR, XR CHEST 1V, 06/12/2022, 12:10. FINDINGS: Surgical changes and devices: None. Lungs and pleura: Lungs are clear. No pleural effusions or pneumothorax. Mediastinum: Mediastinal contours are normal. Heart size is normal. Bones and chest wall: No suspicious bony abnormalities. Moderate levoscoliosis. Soft tissues appear unremarkable. IMPRESSION: No acute cardiopulmonary abnormality is seen. Dictated by: Bianka Guerra M.D. on 04/24/2024 at 21:17 Approved by: Bianka Guerra M.D. on 04/24/2024 at 21:18
== END ==
LOC: RAD 15:15
PROVIDERS: PCP Family Medicine; Referring Provider Family Medicine; Visit Provider Family Medicine
DX: R07.2 Precordial pain (principal); M25.511 Pain in right shoulder
CPT/HCPCS: 71046; 73030

== ENCOUNTER → 2024-08-26 15:40 | Outpatient (CLI) | payer MEDICARE, SELFPAY ==
--- NOTE | 2024-08-26 13:40 | DI.NM.S_ITS ---
DATE OF SERVICE: 08/26/2024 NUCLEAR CARDIOLOGY MYOCARDIAL PERFUSION STUDY PROCEDURE: Exercise treadmill stress and rest myocardial perfusion imaging with gating to assess ejection fraction and regional wall motion. ORDERING PROVIDER: Alexx Levy MD. INDICATIONS: The patient is an 84-year-old female with poorly controlled hypertension, chest discomfort, and dizziness. CARDIAC STRESS: The patient was able to exercise for 3 minutes on a standard Tom protocol suggesting moderate-severely reduced exercise capacity with an JESUS of +32%, achieving only 4.6 METS. She had a moderately accelerated heart rate response to exercise with a resting heart rate of 77 bpm increasing to 103 bpm after 1 minute of exercise and reaching a maximum heart rate of 130 bpm (94% of her predicted maximum) at peak exercise. She had a normal blood pressure response and had moderate exertional dyspnea but denied any anginal chest discomfort. Her resting ECG shows sinus rhythm with normal ST segments and there are no significant ST-segment shifts or arrhythmias with stress. At 1 minute 44 seconds of exercise at a heart rate of 120 bpm, 25.2 millicuries of technetium-99m Myoview was injected and she was imaged 15 minutes later using a gated SPECT acquisition protocol. The patient returned eight days later and was re-injected with an additional 25.9 millicuries of technetium-99m Myoview and was imaged 15 minutes later, again using a gated SPECT acquisition protocol. FINDINGS: 1. Raw data: There is fair myocardial tracer uptake. The lung/heart ratio is normal at 0.28 with a normal TID ratio of 1.00. 2. Quantitated gated SPECT: Post-stress ejection fraction is 84% without any focal wall motion abnormality. The resting ejection fraction is 76% with a normal resting end-diastolic volume of 79 mL. 3. Myocardial perfusion imaging: Post-stress supine images show a normal myocardial perfusion pattern without any perfusion defects, supported by normal perfusion imaging in the prone position. The resting images show no areas of significant improvement. IMPRESSION: 1. Normal myocardial perfusion study. 2. No perfusion defects to suggest myocardial ischemia or previous myocardial infarction. 3. Moderate-severely reduced exercise capacity without angina but limiting dyspnea without ECG ischemic changes or arrhythmias. A moderately accelerated heart rate response to exercise suggests impaired cardiovascular fitness.. Denisse Hopkins - SHAUN/silas/ROX doc#: [id number]/job#: [id number] dd: 09/03/2024 16:58:00 dt: 09/03/2024 17:04:00 DICTATING MD/COPIES TO: Alexx Winter MD; Alexx Levy MD COPIES MNE: SEAN;
== END ==
LOC: NUCM 09-16 12:20
PROVIDERS: PCP Family Medicine; Referring Provider Family Medicine; Visit Provider Family Medicine
DX: R07.2 Precordial pain (principal)
CPT/HCPCS: 78452; 93017; A9502

== ENCOUNTER → 2024-09-03 13:39 | Outpatient (CLI) | payer MEDICARE, SELFPAY ==
--- NOTE | 2024-09-03 13:40 | DI.ECHO.S_ITS ---
[facility] : : [id number] : [place] : : [id number] : : Phone: [phone] Echocardiogram Report + + :Name: TERRA CERVANTES Study Date: 09/03/2024 Height: 61 in : :[facility] ReadingLocation: Weight: 114 lb : : Gender: Female BSA: 1.5 m2 : :: 1940 Age: 84 yrs BP: 154/85 mmHg: :Reason For Study: CHEST PAIN, AORTIC REGURGITATION : :Ordering Physician: DI : :PATRICIA Performed By: Arias Sweet : :Referring: PATRICIA SEVILLA : + + Interpretation Summary The ejection fraction is estimated to be 55-60%. Diastolic function could not be accurately assessed due to contradictory data. The left atrium is mildly dilated. The right ventricle is normal in size and function. Aortic valve sclerosis with moderate regurgitation. There is mild tricuspid regurgitation. The right ventricular systolic pressure is estimated to be at least 32 mmHg based on an estimated right atrial pressure of 3 mm Hg. Compared to prior study 04/20/2021, there has been a slight increase in the aortic regurgitation. Procedure: A two-dimensional transthoracic echocardiogram with color flow and Doppler was performed. The study quality was technically good. Comparison is made with the echocardiogram of 04/20/2021. The patient was in normal sinus rhythm during the exam. Left Ventricle: The left ventricle is normal in size. There is normal left ventricular wall thickness. There is no ventricular septal defect visualized. The ejection fraction is estimated to be 55-60%. There are no focal wall motion abnormalities. Diastolic function could not be accurately assessed due to contradictory data. Right Ventricle: The right ventricle is normal in size and function. There has been no significant change since the previous study. Atria: The left atrium is mildly dilated. Right atrial size is normal. There is no Doppler evidence for an interatrial shunt. Mitral Valve: The mitral valve leaflets appear mildly thickened, but open well. There is mild mitral annular calcification. There is trace mitral regurgitation. Aortic Valve: The aortic valve is trileaflet. The aortic valve is moderately calcified. The aortic valve mean gradient is 12 mmHg. There is no hemodynamically significant valvular aortic stenosis. There is moderate aortic regurgitation. Tricuspid Valve: The tricuspid valve leaflets are thin and pliable. There is mild tricuspid regurgitation. The right ventricular systolic pressure is estimated to be at least 32 mmHg based on an estimated right atrial pressure of 3 mm Hg. Pulmonic Valve: The pulmonic valve leaflets are thin and pliable; valve motion is normal. There is trace pulmonic regurgitation. Great Vessels: The aortic root is normal size. The dimensions of the ascending aorta are normal. The pulmonary artery is normal size. The IVC is of normal diameter and collapses greater than 50% with a sniff. This suggests a low right atrial pressure of 3 mm Hg. Pericardium/ Pleura There is no pericardial effusion. There is no pleural effusion. MMode/2D Measurements & Calculations LVIDd: 5.3 cm LVOT diam: 1.9 cm LVIDs: 3.6 cm Ao root diam: 2.9 cm FS: 31.7 % asc Aorta Diam: 3.7 cm EPSS: 0.49 cm IVSd: 0.88 cm LVPWd: 0.92 cm LV justice. diameter/BSA (cm/m^2): 3.5 LV sys. diameter/BSA (cm/m^2): 2.4 LA A2 area: 14.9 cm2 RA long axis: 4.5 cm LA A4 area: 20.5 cm2 RA area: 11.2 cm2 LA length (vol): 5.5 cm RA vol: 23.9 ml LA vol: 46.8 ml RA : 16.1 ml/m2 LA vol index: 31.5 ml/m2 IVC diam: 1.2 cm RVD1 (basal): 3.1 cm RVD2 (mid): 2.5 cm TAPSE: 1.9 cm Doppler Measurements & Calculations Ao V2 max: 239.7 cm/sec LVOT Max Brennan: 133.7 cm/sec Ao V2 mean: 159.3 cm/sec LV V1 max P.1 mmHg Ao max P.0 mmHg LV V1 VTI: 31.1 cm Ao mean P.7 mmHg JERRELL(I,D): 1.6 cm2 Ao V2 VTI: 55.8 cm JERRELL(V,D): 1.6 cm2 sev ratio: 0.56 JERRELL indexed to BSA (cm^2/m^2): 1.1 AI P1/2t: 461.1 msec AI dec slope: 299.1 cm/sec2 MV E max brennan: 63.2 cm/sec TR max brennan: 270.7 cm/sec MV A max brennan: 109.9 cm/sec TR max P.3 mmHg MV E/A: 0.58 PA V2 max: 86.6 cm/sec Med Peak E' Brennan: 3.4 cm/sec PA V2 mean: 65.4 cm/sec E/E' med: 18.5 PA mean P.8 mmHg Lat Peak E' Brennan: 4.0 cm/sec PA pr(Accel): 51.6 mmHg E/E' lat: 16.0 E/e' average: 17.3 MV dec time: 0.36 sec SV(LVOT): 88.2 ml AV P1/2t-pr_phl: 489.7 msec Reading Physician:04:11 PM
== END ==
LOC: ECHO 13:40
PROVIDERS: PCP Family Medicine; Referring Provider Family Medicine; Visit Provider Family Medicine
DX: R07.2 Precordial pain (principal); I35.1 Nonrheumatic aortic (valve) insufficiency; I51.7 Cardiomegaly; I07.1 Rheumatic tricuspid insufficiency; I35.8 Other nonrheumatic aortic valve disorders
CPT/HCPCS: 93306

== ENCOUNTER → 2025-03-11 14:52 | Outpatient (CLI) | payer MEDICARE, SELFPAY ==
--- NOTE | 2025-03-11 14:59 | DI.MRI.S_ITS ---
PROCEDURE: MR STROKE Pre- and post-contrast brain MRI, non-contrast brain MR angiogram, pre- and postcontrast neck MR angiogram INDICATIONS: Transient cerebral ischemic attack, unspecified TECHNIQUE: Brain: Noncontrast axial T1 spin echo, axial T2 fast spin echo, sagittal and axial FLAIR, coronal T2 fast spin echo, axial gradient echo, axial diffusion and ADC through the brain. After the administration of contrast, axial 3D VIBE of the cranial vasculature and brain. Brain MRA: Non-contrast 3-D time of flight MR angiogram, with multiple kasmjje-xaibdekys-byrebivawx (MIP) reformats performed. Neck MRA: Axial and sagittal TruFISP through the neck. Coronal dynamic MR angiogram during administration of contrast in the arterial and venous phases, with 3- dimenstional hmpgfaw-tzmpqkqyv-qmbsjlpgsj (MIP) reformats constructed from subtraction images. COMPARISON: None. FINDINGS: Image quality: This examination is limited by involuntary motion artifact. BRAIN: CSF spaces: Ventricles are normal in size and shape. Basal cisterns are patent. No extra-axial fluid collections. Brain: No intracranial bleeds or mass effects. Pineda-white matter interface is normal. Diffusion weighted images show no acute infarct. Brainstem appears normal. Normal intravascular flow voids are present. No abnormal intracranial enhancement. Note is made of age-appropriate brain parenchymal volume loss and chronic small vessel ischemic changes. Skull and face: Calvarial marrow signal is normal. Orbits appear normal. Note is made of bilateral lens replacements. Sinuses: Sinuses and mastoids are clear. BRAIN MR ANGIOGRAM: Anterior circulation: Intracranial internal carotid arteries are normal in size and enhancement. The flow within the paired anterior cerebral arteries is normal and symmetric. The flow within the middle cerebral arteries is normal and symmetric. The anterior communicating artery is not well seen. No stenoses, occlusions, or aneurysms. Posterior circulation: Note is made of bilateral type origins of the posterior cerebral arteries, with an associated diminutive basilar artery. The flow within the posterior cerebral arteries is normal and symmetric. The distal vertebral arteries are overall small in size, yet otherwise unremarkable. No aneurysms are seen. NECK MR ANGIOGRAM: Carotids: Great vessels demonstrate a conventional anatomy as they arise from the aortic arch. The origins of the common carotid arteries appear patent. The calibers and courses of both common carotid arteries are normal. The bifurcation regions appear normal bilaterally. The internal carotid arteries demonstrate normal caliber. There is moderate tortuosity seen involving the internal carotid arteries. Posterior circulation: The origin of the left vertebral artery is not well seen and it is believed to be at least 50% narrowed. The origin of the right vertebral artery appears patent. More superior portions of both vertebral arteries demonstrate normal course and caliber, and join to form a normal appearing basilar artery. Miscellaneous: Subclavian arteries appear patent. Pre-contrast images through the neck show no soft tissue abnormalities. IMPRESSION: BRAIN MRI: No findings of acute or subacute infarction can be seen. No masses or abnormal enhancement can be seen. No prior territorial infarct can be seen. BRAIN MR ANGIOGRAM: No significant intracranial arterial abnormality is seen. 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 NECK MR ANGIOGRAM: No significant carotid stenosis is seen. There is moderate tortuosity of the extracranial internal carotid arteries. There is be seen involving the origin of the left vertebral artery. Dictated by: Shaheed Pool M.D. on 03/11/2025 at 14:59 Approved by: Shaheed Pool M.D. on 03/11/2025 at 15:03
== END ==
LOC: MRI 14:57
PROVIDERS: PCP Family Medicine; Referring Provider Family Medicine; Visit Provider Family Medicine
DX: G45.9 Transient cerebral ischemic attack, unspecified (principal); Q28.3 Other malformations of cerebral vessels
CPT/HCPCS: 70544; 70549; 70553; A9579